=== PATIENT | male | born 1990 | race Caucasian/White ===

== ENCOUNTER 2016-06-05 19:01 | Emergency (ER) | payer SELFPAY ==
[~2016-06-05] VITALS: Ht 175.3 cm; Wt 66.0 kg
[~2016-06-05 19:01] MED LIST: SUCR1S PO; ZOFR4TAB3 SL
[2016-06-05 19:21] VITALS: BP 143/81; PULSE 106; RESP 16; TEMP 99; O2SAT 99
[2016-06-05] MEDS ORDERED: SODIUM CHLOR 0.9% 1000 ML INJ 1,000 ML IV SCH ×2 (20:48→22:15)
--- NOTE | 2016-06-05 20:53 | PD ---
HPI Chief Complaint: Headache Time Seen by Provider: 20:40 Travel History International Travel<30 days: No Contact w/Intl Traveler<30days: No Traveled to known affect area: No History of Present Illness HPI The patient is a 25-year-old male that complains of a gradual onset and global headache, nausea, vomiting, sore throat for 24 hours. He denies any fever. He has been diaphoretic at home. He does feel dehydrated. He is unable to hold down clear liquids. He has not had any diarrhea and denies any blood in the stool or vomitus. He denies any head trauma. The headache started after a drinking binge several days ago. PFSH Past Medical History Autoimmune Disease: No Anxiety: No Depression: No Cardiovascular Problems: No Diminished Hearing: No Gastrointestinal Disorders: Yes (RECURRENT GASTRITIS) Musculoskeletal: No Neurologic: No Psychiatric: No Respiratory: No Immunizations Current: Yes Ulcer: Yes Influenza Vaccination: No Past Surgical History Abdominal Surgery: Yes (LAP APP03/16/08) Appendectomy: Yes (03/23) Cardiac Surgery: No Cholecystectomy: No Ear Surgery: No Endocrine Surgery: No Eye Surgery: No Genitourinary Surgery: No Gynecologic Surgery: No Neurologic Surgery: No Oral Surgery: No Thoracic Surgery: No Other Surgery: Yes Social History Alcohol Use: Yes (OCCASIONAL BINGE; LAST USED 05/31/16, UNKNOWN QUANTITY ) Tobacco Use: No (STATES QUIT 07/02/14) Substance Use: Yes (MARIJUANA DAILY, 06/04/16) Allergies-Medications (Allergen,Severity, Reaction): Coded Allergies: No Known Allergies (Verified , 06/05/16) Reported Meds & Prescriptions Reported Meds & Active Scripts Active No Active Prescriptions or Reported Medications Review of Systems Except as stated in HPI: all other systems reviewed are Neg Physical Exam Narrative GENERAL: The patient is alert, moderately dehydrated appearing, oriented 3. His vital signs show heart rate of 106 but otherwise normal. SKIN: Warm and dry. No skin rash is seen. HEAD: Atraumatic. Normocephalic. EYES: Pupils equal and round. No scleral icterus. No injection or drainage. ENT: No nasal bleeding or discharge. Mucous membranes pink and moist. The throat is minimally red without exudate or abscess and the tympanic membranes are clear. NECK: Trachea midline. No JVD. There is no meningismus present. The patient flexes neck fully without any hesitation so that the chin touches the chest. CARDIOVASCULAR: Regular rate and rhythm. No murmur appreciated. RESPIRATORY: No accessory muscle use. Clear to auscultation. Breath sounds equal bilaterally. GASTROINTESTINAL: Abdomen soft, there is slight tenderness to direct palpation in the left upper quadrant, nondistended. Hepatic and splenic margins not palpable. No guarding or rebound is present. MUSCULOSKELETAL: No obvious deformities. No clubbing. No cyanosis. No edema. NEUROLOGICAL: Awake and alert. No obvious cranial nerve deficits. Motor grossly within normal limits. Normal speech. PSYCHIATRIC: Appropriate mood and affect; insight and judgment normal. Data Data Last Documented VS Vital Signs Date Time Temp Pulse Resp B/P Pulse Ox O2 Delivery O2 Flow Rate FiO2 06/05/16 20:29 16 98 Room Air 06/05/16 19:21 99.0 106 143/81 Orders Basic Metabolic Panel (Bmp) (06/05/16 20:48) Complete Blood Count With Diff (06/05/16 20:48) Lipase (06/05/16 20:48) Urinalysis - C+S If Indicated (06/05/16 20:48) Iv Access Insert/Monitor (06/05/16 20:48) Ecg Monitoring (06/05/16 20:48) Oximetry (06/05/16 20:48) Ondansetron Inj (Zofran Inj) (06/05/16 21:00) Sodium Chlor 0.9% 1000 Ml Inj (Ns 1000 M (06/05/16 20:48) Sodium Chloride 0.9% Flush (Ns Flush) (06/05/16 21:00) Ketorolac Inj (Toradol Inj) (06/05/16 21:00) Group A Rapid Strep Screen (06/05/16 22:04) Acetaminophen (Tylenol) (06/05/16 22:15) Sodium Chlor 0.9% 1000 Ml Inj (Ns 1000 M (06/05/16 22:15) Potassium Chloride (Kcl) (06/05/16 22:15) Strep Culture (Group A) (06/05/16 22:15) Labs Laboratory Tests Test 06/05/16 21:10 White Blood Count 19.7 TH/MM3 Red Blood Count 5.14 MIL/MM3 Hemoglobin 14.9 GM/DL Hematocrit 44.4 % Mean Corpuscular Volume 86.4 FL Mean Corpuscular Hemoglobin 29.0 PG Mean Corpuscular Hemoglobin 33.5 % Concent Red Cell Distribution Width 11.9 % Platelet Count 244 TH/MM3 Mean Platelet Volume 7.8 FL Neutrophils (%) (Auto) 87.1 % Lymphocytes (%) (Auto) 5.3 % Monocytes (%) (Auto) 5.5 % Eosinophils (%) (Auto) 0.2 % Basophils (%) (Auto) 1.9 % Neutrophils # (Auto) 17.2 TH/MM3 Lymphocytes # (Auto) 1.0 TH/MM3 Monocytes # (Auto) 1.1 TH/MM3 Eosinophils # (Auto) 0.0 TH/MM3 Basophils # (Auto) 0.4 TH/MM3 CBC Comment DIFF FINAL Differential Comment Urine Color YELLOW Urine Turbidity CLEAR Urine pH 6.0 Urine Specific Doon 1.021 Urine Protein TRACE mg/dL Urine Glucose (UA) NEG mg/dL Urine Ketones 80 OR GREATER mg/dL Urine Occult Blood NEG Urine Nitrite NEG Urine Bilirubin NEG Urine Leukocyte Esterase NEG Urine WBC 0-2 /hpf Urine Mucus FEW /lpf Microscopic Urinalysis Comment CULT NOT INDICATED Sodium Level 140 MEQ/L Potassium Level 3.4 MEQ/L Chloride Level 102 MEQ/L Carbon Dioxide Level 29.0 MEQ/L Anion Gap 9 MEQ/L Blood Urea Nitrogen 13 MG/DL Creatinine 1.10 MG/DL Estimat Glomerular Filtration 83 ML/MIN Rate Random Glucose 91 MG/DL Calcium Level 9.4 MG/DL Lipase 66 U/L [facility] Medical Decision Making Medical Screen Exam Complete: Yes Emergency Medical Condition: Yes Medical Record Reviewed: Yes Interpretation(s) The strep screen is negative for group A strep antigen. The urine shows 80 or greater ketones but is otherwise normal and culture is not indicated. The CBC shows a white count of 19,700 with 87% neutrophils but is otherwise normal. The basic metabolic profile shows potassium 3.4 and GFR of 83 but is otherwise normal. The lipase is normal. Differential Diagnosis Viral syndrome, dehydration, intracranial bleedhighly unlikely, meningitis highly unlikely Narrative Course It is now 10:57 PM and the patient's headache is better and he is starting to hydrate himself orally successfully. He is not nauseated now. I offered to do a CT scan of the head but the patient declined. The elevation in the white count is likely due to his dehydration. Impression: Viral syndrome with dehydration Plan: The patient will take Tylenol, Motrin Physician Communication Physician Communication As we discussed, rest and hydration should relieve your symptoms. If worse, you may need to return to the emergency department for reevaluation. Follow-up next week with your primary care physician. Diagnosis Primary Impression: Viral syndrome Additional Impression: Dehydration Additional Instructions: Continue to hydrate herself. Avoid alcohol. Do not drink alcohol or drive on the Phenergan as this can make you sleepy. Use ibuprofen/Tylenol for the headache. Follow-up with primary care physician next week. Med/Other Pt SpecificInfo: Prescription(s) given Scripts Promethazine (Phenergan)25 Mg Tab25 Mg PO Q6H PRN (Nausea/Vomiting) #28 TAB Ref 0 Prov:Vinay Braswell MD 06/05/16 Disposition: 01 DISCHARGE HOME Condition: Stable Vinay Braswell MD Jun 05, 2016 20:53
[2016-06-05] MEDS ORDERED: KETOROLAC TROMETHAMINE 30 MG/ML (IVP) VIAL IVP ONE (21:00)
[2016-06-05] MEDS ORDERED: ONDANSETRON HCL 4 MG/2 ML VIAL IVP ONE (21:00)
[2016-06-05] MEDS ORDERED: SODIUM CHLORIDE 0.9% FLUSH 10 ML FLUSH IV FLUSH PRN (21:00)
[2016-06-05 21:23] LABS: AUTOMATED NEUTROPHIL # 17.2 TH/MM3 (1.8-7.7); BASOPHIL # 0.4 TH/MM3 (0-0.2); BASOPHIL % 1.9 % (0.0-2.0); BLOOD, URINE NEG (NEG); EOSINOPHIL % 0.2 % (0.0-4.0); GLUCOSE,URINE NEG (NEG); HEMATOCRIT 44.4 % (39.0-51.0); LYMPH % 5.3 % (9.0-44.0); MEAN CELL VOLUME 86.4 FL (80.0-100.0); MEAN CORPUSCULAR HGB CONC 33.5 % (32.0-36.0); MONO % 5.5 % (0.0-8.0); NEUT % 87.1 % (16.0-70.0); NITRITE,URINE NEG (NEG); PLATELET COUNT 244 TH/MM3 (150-450); RED BLOOD COUNT 5.14 MIL/MM3 (4.50-5.90); RED CELL DISTRIBUTION WIDTH 11.9 % (11.6-17.2); WHITE BLOOD COUNT 19.7 TH/MM3 (4.0-11.0)
[2016-06-05 21:24] LABS: KETONE, URINE 80 OR GREATER mg/dL (NEG)
[2016-06-05 21:29] LABS: URINE COLOR YELLOW (YELLW/STRAW)
[2016-06-05 21:32] LABS: COMMENT (UR) CULT NOT INDICATED; CULTURE IF INDICATED CULT NOT INDICATED; HEMO FLAGS DIFF FINAL; MUCUS URINE FEW /lpf (OCC); WBC, URINE 0-2 /hpf (0-5)
[2016-06-05 21:34] LABS: POTASSIUM 3.4 MEQ/L (3.5-5.1)
[2016-06-05 21:50] VITALS: BP 133/74; PULSE 100; RESP 18; O2SAT 100; O2SAT 99
[2016-06-05] MEDS ORDERED: ACETAMINOPHEN 500 MG CPLT PO ONE (22:15)
[2016-06-05] MEDS ORDERED: POTASSIUM CHLORIDE 20 MEQ CONTROLLED RELEASE TAB PO ONE (22:15)
[2016-06-05] MEDS ORDERED: PROM25TA5 PO (23:02)
[2016-06-05 23:10] VITALS: BP 122/77; PULSE 98; RESP 18; O2SAT 100
[2016-06-05 23:17] VITALS: RESP 17
[2016-06-05 23:35] VITALS: BP 128/73
[2016-06-06] MEDS ORDERED: ZOFR4TAB3 SL (17:30)
[2016-06-06] MEDS ORDERED: MOTR200T4 PO (17:30)
[2016-06-07] MEDS ORDERED: AUGM875T PO (05:08)
[2016-06-07] MEDS ORDERED: HYDR-3533 PO (05:08)
== END 2016-06-06 00:20 | disposition home or self-care (01) ==
LOC: PHED 19:01
DX: B34.9 Viral infection, unspecified (principal); E86.0 Dehydration; F12.90 Cannabis use, unspecified, uncomplicated
CPT/HCPCS: 80048; 81001; 83690; 85025; 87081; 87880; 96361; 96374; 96375; 99284; J1885; J2405; J7030

== ENCOUNTER 2016-06-06 14:48 | Emergency (ER) | payer SELFPAY ==
[~2016-06-06] VITALS: Ht 175.3 cm; Wt 67.4 kg
[~2016-06-06 14:48] MED LIST changes: +PROM25TA5 PO
[2016-06-06 15:02] VITALS: BP 115/79; PULSE 92; RESP 15; TEMP 99.1; O2SAT 98
[2016-06-06] MEDS ORDERED: SODIUM CHLOR 0.9% 1000 ML INJ 1,000 ML IV ONE (15:53)
[2016-06-06] MEDS ORDERED: METOCLOPRAMIDE HCL 10 MG/2 ML VIAL IVP ONE (16:00)
[2016-06-06] MEDS ORDERED: diphenhydrAMINE HCL 50 MG/ML VIAL IVP ONE (16:00)
[2016-06-06] MEDS ORDERED: SODIUM CHLORIDE 0.9% FLUSH 10 ML FLUSH IVF PRN (16:00)
--- NOTE | 2016-06-06 16:16 | PD ---
HPI Chief Complaint: Headache Time Seen by Provider: 15:53 Travel History International Travel<30 days: No Contact w/Intl Traveler<30days: No Traveled to known affect area: No History of Present Illness HPI 25-year-old male with history of migraine headaches, seen yesterday for viral syndrome and headache, presents back to the ER today because he states his headache has not gone away and he was told to come back and his headache is continuing. He states he has an 8 out of 10 headache currently with nausea, vomiting, sore throat, coughing, and some diarrhea. He states that the symptoms have not changed. He states that his headache is not going away. He states that it improves with Excedrin Migraine for about an hour or so. He denies any neck stiffness, vision changes, photophobia, or other symptoms. He states that the headaches are not necessarily different from his migraines although it usually does not continue this way. He does not know any sick contacts. Modifying Factors: None Associated Signs & Symptoms: Headaches, nausea, sore throat, coughing, diarrhea Risk Factors: None PFSH Past Medical History Autoimmune Disease: No Anxiety: No Depression: No Cardiovascular Problems: No Diminished Hearing: No Gastrointestinal Disorders: Yes (RECURRENT GASTRITIS) Musculoskeletal: No Neurologic: No Psychiatric: No Respiratory: No Immunizations Current: Yes Ulcer: Yes Tetanus Vaccination: < 5 Years Influenza Vaccination: Yes ?: Not Past Surgical History Abdominal Surgery: Yes ([facility] APP03/16/08) Appendectomy: Yes Cardiac Surgery: No Cholecystectomy: No Ear Surgery: No Endocrine Surgery: No Eye Surgery: No Genitourinary Surgery: No Gynecologic Surgery: No Neurologic Surgery: No Oral Surgery: No Thoracic Surgery: No Other Surgery: Yes Social History Alcohol Use: Yes ([facility]) Tobacco Use: No Substance Use: No Allergies-Medications (Allergen,Severity, Reaction): Coded Allergies: No Known Allergies (Verified , 06/06/16) Reported Meds & Prescriptions Reported Meds & Active Scripts Active Phenergan (Promethazine HCl) 25 Mg Tab 25 Mg PO Q6H PRN Review of Systems Except as stated in HPI: all other systems reviewed are Neg Physical Exam Narrative GENERAL: Young white male patient in mild distress. Awake and oriented 3. Sitting in a lighted room without issues. No photophobia. SKIN: Warm and dry. HEAD: Atraumatic. Normocephalic. EYES: Pupils equal and round. No scleral icterus. No injection or drainage. ENT: No nasal bleeding or discharge. Mucous membranes pink and moist. Mild pharyngeal erythema with no exudates. NECK: Trachea midline. No JVD. CARDIOVASCULAR: Regular rate and rhythm. No murmur appreciated. RESPIRATORY: No accessory muscle use. Clear to auscultation. Breath sounds equal bilaterally. GASTROINTESTINAL: Abdomen soft, non-tender, nondistended. Hepatic and splenic margins not palpable. MUSCULOSKELETAL: No obvious deformities. No clubbing. No cyanosis. No edema. NEUROLOGICAL: Awake and alert. No obvious cranial nerve deficits. Motor grossly within normal limits. Normal speech. PSYCHIATRIC: Appropriate mood and affect; insight and judgment normal. Data Data Last Documented VS Vital Signs Date Time Temp Pulse Resp B/P Pulse Ox O2 Delivery O2 Flow Rate FiO2 06/06/16 17:18 16 118/65 16 121/67 16 134/73 06/06/16 15:02 99.1 92 98 Orders Complete Blood Count With Diff (06/06/16 15:53) Basic Metabolic Panel (Bmp) (06/06/16 15:53) Westergren Sedimentation Rate (06/06/16 15:53) Blood Culture (06/06/16 15:53) Ct Brain W/O Iv Contrast(Rout) (06/06/16 15:53) Ecg Monitoring (06/06/16 15:53) Iv Access Insert/Monitor (06/06/16 15:53) Oximetry (06/06/16 15:53) Sodium Chloride 0.9% Flush (Ns Flush) (06/06/16 16:00) Diphenhydramine Inj (Benadryl Inj) (06/06/16 16:00) Metoclopramide Inj (Reglan Inj) (06/06/16 16:00) Sodium Chlor 0.9% 1000 Ml Inj (Ns 1000 M (06/06/16 15:53) Influenzae A/B Antigen (06/06/16 15:53) Orthostatic Vital Signs (06/06/16 17:13) Labs Laboratory Tests Test 06/06/16 16:20 White Blood Count 16.3 TH/MM3 Red Blood Count 5.06 MIL/MM3 Hemoglobin 14.7 GM/DL Hematocrit 44.2 % Mean Corpuscular Volume 87.3 FL Mean Corpuscular Hemoglobin 29.0 PG Mean Corpuscular Hemoglobin 33.2 % Concent Red Cell Distribution Width 12.6 % Platelet Count 241 TH/MM3 Mean Platelet Volume 7.6 FL Neutrophils (%) (Auto) 84.1 % Lymphocytes (%) (Auto) 7.8 % Monocytes (%) (Auto) 6.2 % Eosinophils (%) (Auto) 0.7 % Basophils (%) (Auto) 1.2 % Neutrophils # (Auto) 13.7 TH/MM3 Lymphocytes # (Auto) 1.3 TH/MM3 Monocytes # (Auto) 1.0 TH/MM3 Eosinophils # (Auto) 0.1 TH/MM3 Basophils # (Auto) 0.2 TH/MM3 CBC Comment DIFF FINAL Differential Comment Erythrocyte Sedimentation Rate 8 mm/hr Sodium Level 142 MEQ/L Potassium Level 3.9 MEQ/L Chloride Level 107 MEQ/L Carbon Dioxide Level 27.9 MEQ/L Anion Gap 7 MEQ/L Blood Urea Nitrogen 9 MG/DL Creatinine 1.10 MG/DL Estimat Glomerular Filtration 83 ML/MIN Rate Random Glucose 91 MG/DL Calcium Level 8.7 MG/DL [facility] Medical Decision Making Medical Screen Exam Complete: Yes Emergency Medical Condition: Yes Medical Record Reviewed: Yes Interpretation(s) Laboratory Tests Test 06/06/16 16:20 White Blood Count 16.3 TH/MM3 (4.0-11.0) Neutrophils (%) (Auto) 84.1 % (16.0-70.0) Lymphocytes (%) (Auto) 7.8 % (9.0-44.0) Neutrophils # (Auto) 13.7 TH/MM3 (1.8-7.7) Monocytes # (Auto) 1.0 TH/MM3 (0-0.9) Estimat Glomerular Filtration 83 ML/MIN (>89) Rate Last [address] 06/06/16 1313 Signed Impressions: Service Date/Time: Monday, June 06, 2016 16:27 - CONCLUSION: Normal examination for a patient of this age. Patrick Zaidi MD Differential Diagnosis Headache, cold symptoms, nausea and vomitinginfluenza versus viral syndrome versus dehydration versus metabolic issues versus sepsis versus meningitis versus acute intracranial processes Narrative Course Influenza is negative. Lab work did not indicate significant dehydration or metabolic issues. IV fluids, Dilaudid, and nausea medications were given in the ER. He had a rapid strep done yesterday which was negative. His lab work does show leukocytosis both yesterday and today of uncertain etiology. His UA did not show any signs of UTI. Pulmonary exam is essentially unremarkable. Blood cultures were done as a precaution. At this point, I have offered to do a lumbar puncture to rule out other acute processes as a cause of his headache. He does not have meningeal signs although meningitis cannot be truly rule out without an LP. He is declining at this time stating that he is feeling improved and he does not want a lumbar puncture done. I have talked him about the fact that we would be unable to fully diagnose for meningitis or other acute processes without a lumbar puncture, meningitis is a serious disease that can cause significant morbidity and . Patient states understanding. In addition, I have talked him about observation admission as well which she states she feels well enough that he does not feel he needs to stay. He should return for any worsening in symptoms as necessary. Follow-up with primary care physician. Diagnosis Primary Impression: Leukocytosis Additional Impression: Headache Med/Other Pt SpecificInfo: Prescription(s) given Scripts Ondansetron Odt (Zofran Odt)4 Mg Tab4 Mg SL Q6HR PRN (Nausea/Vomiting) #5 TAB Ref 0 Prov:Nish Duong MD 06/06/16 Ibuprofen (Motrin Ib)200 Mg [id number] Mg PO Q6H PRN (PAIN SCALE 1 TO 10) #28 TAB Ref 0 Prov:Nish Duong MD 06/06/16 Disposition: 01 DISCHARGE HOME Condition: Stable Nish Duong MD Jun 06, 2016 16:16
[2016-06-06 16:37] LABS: AUTOMATED NEUTROPHIL # 13.7 TH/MM3 (1.8-7.7); BASOPHIL # 0.2 TH/MM3 (0-0.2); BASOPHIL % 1.2 % (0.0-2.0); EOSINOPHIL # 0.1 TH/MM3 (0-0.4); EOSINOPHIL % 0.7 % (0.0-4.0); HEMATOCRIT 44.2 % (39.0-51.0); LYMPH % 7.8 % (9.0-44.0); LYMPHOCYTE # 1.3 TH/MM3 (1.0-4.8); MEAN CELL VOLUME 87.3 FL (80.0-100.0); MEAN CORPUSCULAR HGB CONC 33.2 % (32.0-36.0); MONO % 6.2 % (0.0-8.0); NEUT % 84.1 % (16.0-70.0); PLATELET COUNT 241 TH/MM3 (150-450); RED BLOOD COUNT 5.06 MIL/MM3 (4.50-5.90); RED CELL DISTRIBUTION WIDTH 12.6 % (11.6-17.2); WHITE BLOOD COUNT 16.3 TH/MM3 (4.0-11.0)
[2016-06-06 16:40] LABS: HEMO FLAGS DIFF FINAL
[2016-06-06 16:46] LABS: POTASSIUM 3.9 MEQ/L (3.5-5.1)
[2016-06-06 16:49] LABS: BICARBONATE 27.9 MEQ/L (21.0-32.0)
--- NOTE | 2016-06-06 16:55 | RADHPO ---
EXAM DATE/TIME: 06/06/2016 16:27 [facility] COMPARISON: No previous studies available for comparison. INDICATIONS : Cephalgia. RADIATION DOSE: 56.98 CTDIvol (mGy) MEDICAL HISTORY : None SURGICAL HISTORY : None. ENCOUNTER: Initial ACUITY: 1 day PAIN SCALE: 5/10 LOCATION: cranial TECHNIQUE: Multiple contiguous axial images were obtained of the head. Using automated exposure control and adj ustment of the mA and/or kV according to patient size, radiation dose was kept as low as reasonably a chievable to obtain optimal diagnostic quality images. FINDINGS: CEREBRUM: The ventricles are normal for age. No evidence of midline shift, mass lesion, hemorrhage or acute in farction. No extra-axial fluid collections are seen. POSTERIOR FOSSA: The cerebellum and brainstem are intact. The 4th ventricle is midline. The cerebellopontine angle i s unremarkable. EXTRACRANIAL: The visualized portion of the orbits is intact. SKULL: The calvaria is intact. No evidence of skull fracture. CONCLUSION: Normal examination for a patient of this age. Patrick Zaidi MD on June 06, 2016 at 16:51 Board Certified Radiologist. This report was verified electronically.
[2016-06-06 17:18] VITALS: BP_SYST 118; BP_SYST 121; BP_SYST 134; BP_DIAS 65; BP_DIAS 67; BP_DIAS 73; RESP 16
[2016-06-06] MEDS ORDERED: MOTR200T4 PO (17:30)
[2016-06-06] MEDS ORDERED: ZOFR4TAB3 SL (17:30)
[2016-06-07] MEDS ORDERED: AUGM875T PO (05:08)
[2016-06-07] MEDS ORDERED: HYDR-3533 PO (05:08)
== END 2016-06-06 17:56 | disposition home or self-care (01) ==
LOC: PHEFT 14:48
DX: D72.829 Elevated white blood cell count, unspecified (principal); R51 Headache; R11.2 Nausea with vomiting, unspecified; J02.9 Acute pharyngitis, unspecified
CPT/HCPCS: 70450; 80048; 85025; 85652; 87040; 87804; 96374; 96375; 99284; J1200; J2765; J7030

== ENCOUNTER 2016-06-07 04:22 | Emergency (ER) | payer SELFPAY ==
[~2016-06-07] VITALS: Ht 175.3 cm; Wt 67.3 kg
[~2016-06-07 04:22] MED LIST changes: +MOTR200T4 PO; -SUCR1S PO
[2016-06-07 04:28] VITALS: BP 125/82; PULSE 85; RESP 16; TEMP 99.1; O2SAT 97
[2016-06-07 04:39] VITALS: BP 152/77; PULSE 100; RESP 18; TEMP 99.1; O2SAT 99
[2016-06-07] MEDS ORDERED: AUGM875T PO (05:08)
[2016-06-07] MEDS ORDERED: HYDR-3533 PO (05:08)
--- NOTE | 2016-06-07 05:09 | PD ---
HPI Chief Complaint: ENT Complaint Time Seen by Provider: 04:48 Travel History International Travel<30 days: No Contact w/Intl Traveler<30days: No Traveled to known affect area: No History of Present Illness HPI The patient is a 25-year-old male that I saw several days ago for an apparent viral syndrome and dehydration. Since then he has developed right ear pain. He was seen yesterday by Dr. Ohara for headaches. The patient denies any drainage out of his right ear. He may have had a low-grade fever. He does have some nausea and occasional vertigo. The patient states his urines are still dark and he probably is dehydrated. PFSH Past Medical History Autoimmune Disease: No Anxiety: No Depression: No Cardiovascular Problems: No Diminished Hearing: No Gastrointestinal Disorders: Yes (RECURRENT GASTRITIS) Musculoskeletal: No Neurologic: No Psychiatric: No Respiratory: No Immunizations Current: Yes Ulcer: Yes Tetanus Vaccination: > 5 Years ?: Not Past Surgical History Abdominal Surgery: Yes (LAP APP03/16/08) Appendectomy: Yes Cardiac Surgery: No Cholecystectomy: No Ear Surgery: No Endocrine Surgery: No Eye Surgery: No Genitourinary Surgery: No Gynecologic Surgery: No Neurologic Surgery: No Oral Surgery: No Thoracic Surgery: No Other Surgery: Yes Social History Alcohol Use: Yes (occ) Tobacco Use: No Substance Use: No Allergies-Medications (Allergen,Severity, Reaction): Coded Allergies: No Known Allergies (Verified , 06/06/16) Reported Meds & Prescriptions Reported Meds & Active Scripts Active Lortab (Hydrocodone-Acetaminophen) 5-325 Mg Tab 1 Tab PO Q4H PRN Augmentin (Amoxicillin-Clavulanate) 875-125 mg Tab 875 Mg PO BID 10 Days not for use in CrCl <30 ml/min. Phenergan (Promethazine HCl) 25 Mg Tab 25 Mg PO Q6H PRN Review of Systems Except as stated in HPI: all other systems reviewed are Neg Physical Exam Narrative GENERAL: Well-nourished, well-developed patient in moderate apparent distress with his right ear pain. His vital signs show temperature 99.1 but otherwise normal. SKIN: Focused skin assessment warm/dry. HEAD: Normocephalic. EYES: No scleral icterus. No injection or drainage. NECK: Supple, trachea midline. No JVD or lymphadenopathy. There is no meningismus present and the patient flexes neck fully without any hesitation. CARDIOVASCULAR: Regular rate and rhythm without murmurs, gallops, or rubs. RESPIRATORY: Breath sounds equal bilaterally. No accessory muscle use. GASTROINTESTINAL: Abdomen soft, non-tender, nondistended. MUSCULOSKELETAL: No cyanosis, or edema. BACK: Nontender without obvious deformity. No CVA tenderness. ENT: The right tympanic membrane is distorted, red and pus behind the eardrum. The left tympanic membrane and canal are normal. The right canal is normal. Data Data Last Documented VS Vital Signs Date Time Temp Pulse Resp B/P Pulse Ox O2 Delivery O2 Flow Rate FiO2 06/07/16 05:40 18 06/07/16 04:39 99.1 100 152/77 99 06/07/16 04:28 Room Air Orders Ceftriaxone Inj (Rocephin Inj) (06/07/16 05:15) Sodium Chlor 0.9% 1000 Ml Inj (Ns 1000 M (06/07/16 05:15) Ondansetron Inj (Zofran Inj) (06/07/16 05:15) Hydromorphone Pf Inj (Dilaudid Pf Inj) (06/07/16 05:15) [facility] Medical Decision Making Medical Screen Exam Complete: Yes Emergency Medical Condition: Yes Medical Record Reviewed: Yes Differential Diagnosis Acute right otitis media, meningitishighly unlikely, viral syndrome, viral labyrinthitis Narrative Course The patient has an acute right otitis media. Apparently his illness started out with a viral syndrome and he got dehydrated. The virus reduces resistance to ear infections and ultimately he got a right otitis media. He will be given Rocephin, 2 g IV here as well as Augmentin by tablets for 10 days. He is welcome to return to emergency department if not better but it may take 5 days. Diagnosis Primary Impression: Acute right otitis media Additional Impression: Mild dehydration Additional Instructions: As we discussed, this may take 4-5 days for this ear infection resolved. If you continue to have problems with your you should follow-up with an ear nose and throat doctor (welfare administrator). You're welcome to return to emergency department if you have any problems. Do not drink alcohol or drive on the Lortab 5. Take the Phenergan for nausea so that she can continue to hydrate yourself. Med/Other Pt SpecificInfo: Prescription(s) given Scripts Hydrocodone-Acetaminophen (Lortab)5-325 Mg Tab1 Tab PO Q4H PRN (PAIN) #20 TAB Ref 0 Prov:Vinay Braswell MD 06/07/16 Amoxicillin-Clavulanate (Augmentin)875-125 mg Ato089 Mg PO BID 10 Days Ref 0 not for use in CrCl <30 ml/min. Prov:Vinay Braswell MD 06/07/16 Disposition: 01 DISCHARGE HOME Condition: Stable Vinay Braswell MD Jun 07, 2016 05:09
[2016-06-07] MEDS ORDERED: ONDANSETRON HCL 4 MG/2 ML VIAL IVP ONE (05:15)
[2016-06-07] MEDS ORDERED: cefTRIAXone INJ 2,000 MG in SODIUM CHLORIDE 0.9% INJ 100 ML IV ONE (05:15)
[2016-06-07] MEDS ORDERED: SODIUM CHLOR 0.9% 1000 ML INJ 1,000 ML IV SCH (05:15)
[2016-06-07] MEDS ORDERED: HYDROmorphone HCL PF 1 MG/ML VIAL IVS ONE (05:15)
[2016-06-07 05:40] VITALS: RESP 18
[2016-06-07 05:50] VITALS: BP 137/68
== END 2016-06-07 06:03 | disposition home or self-care (01) ==
LOC: PHED 04:22
DX: H66.91 Otitis media, unspecified, right ear (principal); E86.0 Dehydration
CPT/HCPCS: 96365; 96375; 99283; J0696; J1170; J2405; J7030

== ENCOUNTER 2017-03-07 18:47 | Emergency (ER) | payer SELFPAY ==
[~2017-03-07] VITALS: Ht 172.7 cm; Wt 65.9 kg
[~2017-03-07 18:47] MED LIST changes: +AUGM875T PO; +HYDR-3533 PO; -MOTR200T4 PO; -ZOFR4TAB3 SL
[2017-03-07 18:51] VITALS: BP 140/71; PULSE 80; RESP 16; TEMP 98.3; O2SAT 99
--- NOTE | 2017-03-07 19:12 | PD ---
HPI Chief Complaint: Pain: Acute or Chronic Time Seen by Provider: 18:57 Travel History International Travel<30 days: No Contact w/Intl Traveler<30days: No Traveled to known affect area: No History of Present Illness HPI 26-year-old male here for evaluation of chest pains, right flank pain, abdominal pain. Patient reports symptoms have been going on for the last 2 weeks. Chest pain has resolved. He states that he quit smoking marijuana 2 weeks ago. Right flank pain, right abdominal pain, and epigastric pain have also been going on for about 2 weeks and described as sharp/burning, currently 5 out of 10, worse with movements. The patient has had loose bowel movements. He denies hematuria or dysuria. No melena or hematochezia. History of appendectomy. No fevers or chills. PFSH Past Medical History Autoimmune Disease: No Anxiety: No Depression: No Cardiovascular Problems: No Diminished Hearing: No Gastrointestinal Disorders: Yes (RECURRENT GASTRITIS) Musculoskeletal: No Neurologic: No Psychiatric: No Respiratory: No Immunizations Current: Yes Ulcer: Yes Tetanus Vaccination: Unknown Influenza Vaccination: No ?: Not Past Surgical History Abdominal Surgery: Yes ([facility] APP03/16/08) Appendectomy: Yes Cardiac Surgery: No Cholecystectomy: No Ear Surgery: No Endocrine Surgery: No Eye Surgery: No Genitourinary Surgery: No Gynecologic Surgery: No Neurologic Surgery: No Oral Surgery: No Thoracic Surgery: No Other Surgery: Yes Social History Alcohol Use: Yes ([facility]) Tobacco Use: No Substance Use: No Allergies-Medications (Allergen,Severity, Reaction): Coded Allergies: No Known Allergies (Verified Adverse Reaction, Unknown, 03/07/17) Reported Meds & Prescriptions Reported Meds & Active Scripts Active Protonix (Pantoprazole Sodium) 40 Mg Tab 40 Mg PO DAILY Bentyl (Dicyclomine HCl) 10 Mg Cap 10 Mg PO TID PRN 30 Days Review of Systems Except as stated in HPI: all other systems reviewed are Neg Physical Exam Narrative GENERAL: Well-developed, well-nourished, comfortable, no apparent distress. SKIN: Focused skin assessment warm/dry. No rash. HEAD: Atraumatic. Normocephalic. EYES: Pupils equal and round. No scleral icterus. No injection or drainage. ENT: Mucous membranes pink and moist. NECK: Trachea midline. No JVD. CARDIOVASCULAR: Regular rate and rhythm. RESPIRATORY: No accessory muscle use. Clear to auscultation. Breath sounds equal bilaterally. GASTROINTESTINAL: Abdomen soft, nondistended. Mild right upper quadrant, epigastric, periumbilical tenderness without peritoneal signs. No hernias. Normal bowel sounds. MUSCULOSKELETAL: No obvious deformities. No clubbing. No cyanosis. No edema. No CVA tenderness bilaterally. NEUROLOGICAL: Awake and alert. No obvious cranial nerve deficits. Motor grossly within normal limits. Normal speech. PSYCHIATRIC: Appropriate mood and affect; insight and judgment normal. Data Data Last Documented VS Vital Signs Date Time Temp Pulse Resp B/P (MAP) Pulse Ox O2 Delivery O2 Flow Rate FiO2 03/07/17 20:51 78 16 98 03/07/17 20:41 Room Air 03/07/17 18:51 98.3 Orders Orders Complete Blood Count With Diff (03/07/17 19:07) Comprehensive Metabolic Panel (03/07/17 19:07) Lipase (03/07/17 19:07) Prothrombin Time / Inr (Pt) (03/07/17 19:07) Act Partial Throm Time (Ptt) (03/07/17 19:07) Urinalysis - C+S If Indicated (03/07/17 19:07) Ct Abd/Pel W Iv Contrast(Rout) (03/07/17 19:07) Iv Access Insert/Monitor (03/07/17 19:07) Ecg Monitoring (03/07/17 19:07) Oximetry (03/07/17 19:07) Sodium Chloride 0.9% Flush (Ns Flush) (03/07/17 19:15) Morphine Inj (Morphine Inj) (03/07/17 19:15) Electrocardiogram (03/07/17 19:07) Ckmb (Isoenzyme) Profile (03/07/17 19:07) Troponin I (03/07/17 19:07) Pantoprazole Inj (Protonix Inj) (03/07/17 19:15) Al-Mag Hy-Si 40-40-4 Mg/Ml Liq (Mag-Al P (03/07/17 19:15) Lidocaine 2% Viscous (Xylocaine 2% Visco (03/07/17 19:15) Chest, Single Ap (03/07/17 ) Iohexol 350 Inj (Omnipaque 350 Inj) (03/07/17 19:32) Dicyclomine (Bentyl) (03/07/17 20:30) Ed Discharge Order (03/07/17 20:29) Labs Laboratory Tests Test 03/07/17 19:16 White Blood Count 7.1 TH/MM3 Red Blood Count 5.17 MIL/MM3 Hemoglobin 14.5 GM/DL Hematocrit 45.4 % Mean Corpuscular Volume 87.8 FL Mean Corpuscular Hemoglobin 28.0 PG Mean Corpuscular Hemoglobin Concent 31.9 % Red Cell Distribution Width 12.4 % Platelet Count 313 TH/MM3 Mean Platelet Volume 7.6 FL Neutrophils (%) (Auto) 56.4 % Lymphocytes (%) (Auto) 33.4 % Monocytes (%) (Auto) 6.7 % Eosinophils (%) (Auto) 3.1 % Basophils (%) (Auto) 0.4 % Neutrophils # (Auto) 4.0 TH/MM3 Lymphocytes # (Auto) 2.4 TH/MM3 Monocytes # (Auto) 0.5 TH/MM3 Eosinophils # (Auto) 0.2 TH/MM3 Basophils # (Auto) 0.0 TH/MM3 CBC Comment DIFF FINAL Differential Comment Prothrombin Time 10.5 SEC Prothromb Time International Ratio 1.0 RATIO Activated Partial Thromboplast Time 28.0 SEC Urine Color STRAW Urine Turbidity CLEAR Urine pH 5.5 Urine Specific [place] 1.002 Urine Protein NEG mg/dL Urine Glucose (UA) NEG mg/dL Urine Ketones NEG mg/dL Urine Occult Blood NEG Urine Nitrite NEG Urine Bilirubin NEG Urine Leukocyte Esterase NEG Urine Squamous Epithelial Cells 0-5 /hpf Microscopic Urinalysis Comment CULT NOT INDICATED Blood Urea Nitrogen 13 MG/DL Creatinine 1.10 MG/DL Random Glucose 92 MG/DL Total Protein 7.6 GM/DL Albumin 4.0 GM/DL Calcium Level 8.5 MG/DL Alkaline Phosphatase 85 U/L Aspartate Amino Transf (AST/SGOT) 20 U/L Alanine Aminotransferase (ALT/SGPT) 28 U/L Total Bilirubin 0.4 MG/DL Sodium Level 139 MEQ/L Potassium Level 3.9 MEQ/L Chloride Level 103 MEQ/L Carbon Dioxide Level 28.6 MEQ/L Anion Gap 7 MEQ/L Estimat Glomerular Filtration Rate 82 ML/MIN Total Creatine Kinase 99 U/L Troponin I LESS THAN 0.02 NG/ML Lipase 116 U/L [facility] Medical Decision Making Medical Screen Exam Complete: Yes Emergency Medical Condition: Yes Medical Record Reviewed: Yes Interpretation(s) EKG: Sinus, rate 90, normal axis, normal intervals, no acute ischemic abnormality. Differential Diagnosis Nephrolithiasis, ureterolithiasis, pyelonephritis, hepatobiliary disease, IBS, peptic ulcer disease, gastritis, pancreatitis, ACS unlikely Narrative Course Vital signs show heart rate 80, blood pressure 140/71, pulse ox 99% on room air , oral temp 98.3F. CBC is unremarkable. CMP is unremarkable. Cardiac enzymes are negative. Lipase is 116. UA is not suggestive of UTI. Chest x-ray shows no acute disease. CT abdomen pelvis: CONCLUSION: 1. No acute findings in the abdomen and pelvis. 2. Bilateral pars interarticularis defects of L5 noted. Patient was given a dose of morphine, GI cocktail, and Protonix and states his symptoms have improved, however he does have some persistent tenderness to his right mid abdomen. There are no peritoneal signs on exam. He does a lot of heavy weightlifting, likely the etiology for his bilateral pars defects at L5. Patient may have IBS. He may also have peptic ulcer disease. At this point he is stable for discharge home with further workup as an outpatient. I do not believe his chest pain is cardiopulmonary in nature, and it has resolved. 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 I will start him on Protonix and Bentyl. He was advised on when to return to the emergency department. He verbalizes understanding and agreement with plan. Diagnosis Primary Impression: Abdominal pain Qualified Codes: R10.9 - Unspecified abdominal pain Referrals: Nhung Alva MD 3 days [facility] 3 days Additional Instructions: Follow-up with a primary care physician this week. Follow-up with [employer] worker Dr. Alva or a gastric urologist of your choice this week. Return to the emergency department for worsening symptoms or any other concerns. Scripts Pantoprazole (Protonix) 40 Mg Tab 40 MG PO DAILY for Ulcer Prevention, #30 TAB 0 Refills Prov: Chava Davalos MD 03/07/17 Dicyclomine (Bentyl) 10 Mg Cap 10 MG PO TID Y for Bowel Management for 30 Days, CAP 0 Refills Prov: Chava Davalos MD 03/07/17 Disposition: DISCHARGE HOME Condition: Stable Chava Davalos MD Mar 07, 2017 19:12
[2017-03-07] MEDS ORDERED: LIDOCAINE VISCOUS 2% SOLN 15 ML UDC PO ONE (19:15)
[2017-03-07] MEDS ORDERED: MORPHINE SULFATE 2 MG/ML INJ IV PUSH ONE (19:15)
[2017-03-07] MEDS ORDERED: SODIUM CHLORIDE 0.9% FLUSH 10 ML FLUSH IV FLUSH PRN (19:15)
[2017-03-07] MEDS ORDERED: ALUMINUM/MAGNESIUM/SIMETH 30 ML CUP PO ONE (19:15)
[2017-03-07] MEDS ORDERED: PANTOPRAZOLE SODIUM 40 MG VIAL IVP ONE (19:15)
[2017-03-07 19:27] LABS: BASOPHIL % 0.4 % (0.0-2.0); EOSINOPHIL # 0.2 TH/MM3 (0-0.4); EOSINOPHIL % 3.1 % (0.0-4.0); HEMATOCRIT 45.4 % (39.0-51.0); HEMOGLOBIN 14.5 GM/DL (13.0-17.0); LYMPH % 33.4 % (9.0-44.0); LYMPHOCYTE # 2.4 TH/MM3 (1.0-4.8); MEAN CELL VOLUME 87.8 FL (80.0-100.0); MEAN CORPUSCULAR HGB CONC 31.9 % (32.0-36.0); MEAN PLATELET VOLUME 7.6 FL (7.0-11.0); MONO % 6.7 % (0.0-8.0); MONOCYTE # 0.5 TH/MM3 (0-0.9); NEUT % 56.4 % (16.0-70.0); PLATELET COUNT 313 TH/MM3 (150-450); RED BLOOD COUNT 5.17 MIL/MM3 (4.50-5.90); RED CELL DISTRIBUTION WIDTH 12.4 % (11.6-17.2); WHITE BLOOD COUNT 7.1 TH/MM3 (4.0-11.0)
[2017-03-07 19:29] LABS: BILIRUBIN, URINE NEG (NEG); BLOOD, URINE NEG (NEG); GLUCOSE,URINE NEG (NEG); KETONE, URINE NEG (NEG); NITRITE,URINE NEG (NEG); PH, URINE 5.5 (5.0-8.5); URINE LEUKOCYTE ESTERASE NEG (NEG)
[2017-03-07] MEDS ORDERED: IOHEXOL 350 MG/ML 10 ML VIAL (for RAD DIAG) IVCONTRAST ONE (19:32)
[2017-03-07 19:38] LABS: CHLORIDE 103 MEQ/L (98-107); SODIUM (NA) 139 MEQ/L (136-145)
[2017-03-07 19:42] LABS: PROTHROMBIN TIME - PATIENT 10.5 SEC (9.8-11.6)
[2017-03-07 19:43] LABS: CALCIUM 8.5 MG/DL (8.5-10.1)
[2017-03-07 19:44] LABS: BICARBONATE 28.6 MEQ/L (21.0-32.0); BLOOD UREA NITROGEN 13 MG/DL (7-18); GLUCOSE,RANDOM 92 MG/DL (74-106); LIPASE 116 U/L (73-393)
--- NOTE | 2017-03-07 19:46 | RADRPT ---
EXAM DATE/TIME: 03/07/2017 19:21 [facility] COMPARISON: CHEST SINGLE AP, July 08, 2014, 21:50. INDICATIONS : Chest pain. MEDICAL HISTORY : None. SURGICAL HISTORY : None. ENCOUNTER: Initial ACUITY: 2 weeks PAIN SCORE: 4/10 LOCATION: Bilateral chest FINDINGS: Single AP view of the chest. The lungs are clear. Cardiomediastinal silhouette within normal limits. No evidence of pleural effusion or pneumothorax. CONCLUSION: No acute cardiopulmonary disease identified. Gopal Parmar MD on March 07, 2017 at 19:44 Board Certified Radiologist. This report was verified electronically.
[2017-03-07 19:47] LABS: ALT (GPT) 28 U/L (12-78); AST (GOT) 20 U/L (15-37); GLOMERULAR FILTRATION RATE 82 ML/MIN (>89)
[2017-03-07 19:48] LABS: TOTAL BILIRUBIN ADULT 0.4 MG/DL (0.2-1.0); TOTAL PROTEIN 7.6 GM/DL (6.4-8.2)
[2017-03-07 19:49] LABS: ALKALINE PHOSPHATASE 85 U/L (45-117)
[2017-03-07 19:52] LABS: SQUAMOUS EPITHELIAL CELL URINE 0-5 /hpf (0-5); TROPONIN I LESS THAN 0.02 NG/ML (0.02-0.05); URINE COLOR STRAW (YELLW/STRAW)
--- NOTE | 2017-03-07 20:05 | RADRPT ---
EXAM DATE/TIME: 03/07/2017 19:24 [facility] COMPARISON: No previous studies available for comparison. INDICATIONS : Right flank pain for 1 week. Hurts when breathing. IV CONTRAST: 96 cc Omnipaque 350 (iohexol) IV ORAL CONTRAST: No oral contrast ingested. RADIATION DOSE: 5.18 CTDIvol (mGy) MEDICAL HISTORY : gastritis SURGICAL HISTORY : Appendectomy. ENCOUNTER: Initial ACUITY: 1 week PAIN SCALE: 7/10 LOCATION: Right flank TECHNIQUE: Volumetric scanning of the abdomen and pelvis was performed. Using automated exposure control and ad justment of the mA and/or kV according to patient size, radiation dose was kept as low as reasonably achievable to obtain optimal diagnostic quality images. DICOM format image data is available electro nically for review and comparison. FINDINGS: LOWER LUNGS: The visualized lower lungs are clear. LIVER: Homogeneous density without lesion. There is no dilation of the biliary tree. No calcified [place] es. SPLEEN: Normal size without lesion. PANCREAS: Within normal limits. KIDNEYS: Normal in size and shape. There is no mass, stone or hydronephrosis. ADRENAL GLANDS: Within normal limits. VASCULAR: There is no aortic aneurysm. BOWEL/MESENTERY: No evidence of bowel dilatation. No free air or free fluid. Appendix not visualized. ABDOMINAL WALL: Within normal limits. RETROPERITONEUM: There is no lymphadenopathy. BLADDER: No wall thickening or mass. REPRODUCTIVE: Within normal limits. INGUINAL: There is no lymphadenopathy or hernia. MUSCULOSKELETAL: Bilateral pars interarticularis defects of L5. CONCLUSION: 1. No acute findings in the abdomen and pelvis. 2. Bilateral pars interarticularis defects of L5 noted. Gopal Parmar MD on March 07, 2017 at 20:00 Board Certified Radiologist. This report was verified electronically.
[2017-03-07] MEDS ORDERED: DICY10 PO (20:29)
[2017-03-07] MEDS ORDERED: PROT40TA PO (20:29)
[2017-03-07] MEDS ORDERED: DICYCLOMINE HCL 10 MG CAP PO ONE (20:30)
[2017-03-07 20:41] VITALS: BP 106/71; PULSE 78; RESP 16; O2SAT 98
--- NOTE | 2017-03-08 07:27 | EKG ---
Date Performed: 03/07/2017 Time Performed: 19:14:12 PTAGE: 26 years EKG: Sinus rhythm NORMAL ECG PREVIOUS TRACING : 07/08/2014 21.32 No significant change from previous tracing noted. DOCTOR: Tommie Álvarez Interpretating Date/Time 03/08/2017 07:26:24
== END 2017-03-07 20:53 | disposition home or self-care (01) ==
LOC: PHED 18:47
DX: R10.13 Epigastric pain (principal); R07.9 Chest pain, unspecified
CPT/HCPCS: 71010; 74177; 80053; 81001; 82550; 83690; 84484; 85025; 85610; 85730; 93005; 96374; 96375; 99285; C9113; J2270; Q9967